=== PATIENT | female | born 1950 | race Caucasian/White ===

== ENCOUNTER 2023-04-30 11:55 | Inpatient (IN) | payer MEDICARE, OTHER, SELFPAY ==
[2023-04-21 08:47] VITALS: BMI 26.6
[2023-04-30] VITALS (16 sets, daily range): BP systolic 114–176; BP diastolic 65–107; PULSE 69–90; RESP 12–22; TEMP 36.1–36.7; O2SAT 90–100; BMI 25.6
--- NOTE | 2023-04-30 | DI.RAD.S_ITS ---
PROCEDURE: XR LUMBAR SPINE 2-3V INDICATIONS: L2-3 TLIF TECHNIQUE: 3 views of the lumbar spine were acquired. COMPARISON: None. FINDINGS: Intraoperative fluoroscopic views of pedicular screw and ibbiana fixation. The level cannot be determined with certainty given these images. IMPRESSION: Pedicular bibiana in screw fixation demonstrated. Dictated by: Isiah Watson M.D. on 05/01/2023 at 12:14 Approved by: Isiah Watson M.D. on 05/01/2023 at 12:15
[2023-04-30] MEDS: LACTATED RINGERS 1,000 ML 84 ML IV ×2 (12:53→14:56)
[2023-04-30] MEDS: CEFAZOLIN 2 GM/100 ML PREMIX 100 ML IV ×2 (13:20→21:50)
--- NOTE | 2023-04-30 13:44 | SUR.OPER ---
Prone on spine table, head in foam head support, padded chest and pelvic supports, gel pad at knees, lower legs supported by pillows; nipples, genitalia and toes free of pressure, arms secured on foam padded arm boards at <90 degrees abduction. Tape over blanket at thigh secured to table.
[2023-04-30] MEDS: BUPIVACAINE LIPOSOME 266 MG/20 ML VIAL INJ (14:03)
[2023-04-30] MEDS: BUPIVACAINE 0.25% (PF) 30 ML, EPINEPHrine 0.15 MG INJ (14:08)
--- NOTE | 2023-04-30 15:31 | PM.OP.1 ---
Operative Date/Time/Diagnoses Date of procedure: 04/30/23 Time of procedure: 13:00 Pre-op diagnosis: 1. L2-3 spondylolisthesis 2. L2-3 spinal stenosis Post-op diagnosis: same Procedure & Clinicians Procedure: 1. L2-3 Postero-lateral and posterior interbody fusion 2. L2-3 interbody cage placement. 3. L2-3 decompressive laminectomy with bilateral facetecomies 4. L2-3 Posterior non-segmental instrumentation 5. [place] of bone marrow from iliac crest 6. Utilization of microsurgical technique and operating microscope Same procedure as scheduled: Yes Indications: Patient has been having chronic back pain and worsening lumbar radiculopathy. Patient failed multiple conservative management with worsening pain weakness and numbness in her lower extremity. Patient has been having difficulty performing activity of daily living. After discussing risks benefits of treatment options, patient elected proceed with surgery. Surgeon: Xiomy Duong Railway Track Plant Operator: Genny Barlow Click Yes if Unassisted: No Anesthesia Type: General Operative Notes Closure Type: primary Specimen(s): none sent Prosthetic devices, grafts, tissues, transplants, or devices: Globus revolve screws, Rise cage Estimated Blood Loss (mL): 50 Blood products transfused: none Procedure in detail: Patient was seen in the preoperative area. Risks and benefits of the surgery was discussed with the patient. Informed consent was obtained from the patient and placed in the chart. Surgical site was marked. Patient was taken to the operative room. General anesthesia was administered. Prophylactic antibiotic was given to the patient less than 30 min before the incision was made. Patient was placed into a prone position on the Idris table. Patient's back was then prepped and draped in the sterile fashion. Time-out was performed at this time. Using AP and lateral C-arm imaging the interval between L2-3 was identified and marked on patient's back. A 2 inch incision 2 in from midline was made on the right side first. The fascia was incised in line with skin incision. Globus MARS retractors was placed inside the incision and docked onto the L2 lamina. Using microsurgical technique and operating microscope, a L2 laminectomy and L2-3 facetectomy was performed using a Kerrison rongeur. The laminectomy and facetectomy was performed in order to decompress patient's cauda equina as well as the nerve roots exiting at the L2-3 level. The disc space at L2-3 was identified. And a total diskectomy was performed at L2-3 level. The endplates were decorticated using a rasp and shaver. The total diskectomy and decortication was performed at L2-3 level in order to to accomplish a L2-3 fusion. The local bone from the laminectomy and facetectomy was saved for local bone grafting. After the total diskectomy and decortication was completed, Trifecta bone graft material was combined with local bone that was harvested earlier. At this time, a separate skin is incision was made over the iliac crest. A Jamshidi needle was inserted into the iliac crest through a separate skin incision. 5 cc of bone marrow aspiration was obtained through the separate skin incision using a Jamshidi needle from the iliac crest. The bone marrow aspiration was combined with local bone and the Trifecta bone grafting material. The bone grafting material was placed into the L2-3 interbody space along with a expandable cage. The cage was expanded to its maximum height using the torque limiting screwdriver. At this time a mirror image incision was made on the left side. The fascia was incised in line with the skin incision. Globus MARS retractor was inserted and docked onto the L2-3 posterolateral gutter. Using the power drill, posterior-lateral decortication was performed at L2-3 level until bleeding cortical bone was identified. The remaining bone grafting material was placed into the L2-3 posterior lateral gutter he order to accomplish posterolateral fusion at the L2-3 level. Using the double C-arm technique, pedicle screws were placed into the L2-3 pedicles bilaterally. This was done by placing the Jamshidi needle into the pedicles, then placing the guidewires over the Jamshidi needle, and finally placing the cannulated screws over the guidewires bilaterally. After the pedicle screws were placed, 2 titanium rods was locked into the heads of the pedicle screws using locking caps and torque limiting screwdriver. After all the hardware was placed, and confirmed with AP and lateral C-arm imaging, the wound was then irrigated with sterile normal saline and packed with Ray-Karthik gauze for 3 min to accomplish hemostasis. After the gauze was removed the deep fascia was closed with #1 Vicryl suture. The subcutaneous layer was closed with 2-0 Vicryl. The skin was closed with skin michael. Patient tolerated the procedure well. There were no complications. Complications: none Post-operative Condition: stable Disposition: PACU Plan for aftercare: admit to inpatient hospital
[2023-04-30] MEDS: hydrOXYzine 50 MG/ML INJ 25 MG IM (15:35)
[2023-04-30] MEDS: fentaNYL 100 MCG/2 ML INJ IV ×2 (15:35→15:45)
[2023-04-30] MEDS: OXYCODONE/ACETAMINOPHEN 5/325 TABLET 1 TAB PO (15:36)
[2023-04-30] MEDS: HYDROMORPHONE 2 MG INJ IV ×2 (15:56→16:01)
[2023-04-30] MEDS: LORazepam 2 MG/ML INJ 0.25 MG IV (16:10)
[2023-04-30] MEDS: LACTATED RINGERS 1,000 ML 125 ML IV (17:32)
[2023-04-30] MEDS: HYDROMORPHONE 0.5 MG INJ IV ×2 (19:58→23:45)
[2023-04-30] MEDS: OXYCODONE IR 5 MG TABLET PO (21:59)
[2023-04-30] MEDS: hydrOXYzine pamoate 25 MG CAPSULE PO (21:59)
[2023-05-01] VITALS: BP 138/65; PULSE 79; RESP 17; TEMP 36.1; O2SAT 96
[2023-05-01 00:03] VITALS: BP 136/65; PULSE 69; RESP 16; TEMP 36.6; O2SAT 96
--- NOTE | 2023-05-01 00:08 | PC.NURSE ---
Patient very drowsy but arouseable at shift change but is now more alert and conversant; alert and oriented. Breath sounds diminished but CTA. Initially on oxygen per simple mask at 2L/min per NC with sat of 93% but desats when on RA so currently on oxygen at 1L/min with sat of 96% when awake. HRR. Denies nausea. BT hypoactive and abdomen is soft. Voiding per bedpan and denies dysuria. Is assisted to reposition q2h although prefers to lie on left side. Dressing to back is CDI. Pain control issues and has had 2 doses of IV Dilaudid + vistaril and oxycodone; does fall asleep after receiving pain medication and does verbalize that the pain is better controlled currently; declines use of ice pack. CMS is intact. Wearing bilateral calf SCD's. Fall risk score is moderate and bed alarm is activated. Spouse at bedside.
[2023-05-01] MEDS: LACTATED RINGERS 1,000 ML 125 ML IV (01:55)
[2023-05-01] MEDS: OXYCODONE IR 5 MG TABLET PO ×3 (01:58→10:19)
[2023-05-01 04:00] VITALS: BP 104/52; PULSE 78; RESP 16; TEMP 36.2; O2SAT 94
[2023-05-01] MEDS: HYDROMORPHONE 0.5 MG INJ IV ×2 (04:35→08:13)
[2023-05-01] MEDS: CEFAZOLIN 2 GM/100 ML PREMIX 100 ML IV (04:35)
[2023-05-01] MEDS: hydrOXYzine pamoate 25 MG CAPSULE PO ×2 (05:27→16:57)
[2023-05-01] MEDS: DOCUSATE 100 MG CAPSULE PO (08:13)
[2023-05-01] MEDS: polyethylene glycoL 3350 17 GM POWD.PACK PO (08:13)
[2023-05-01 09:00] VITALS: BP 116/45; PULSE 73; RESP 17; TEMP 36.5; O2SAT 95
[2023-05-01] MEDS: ACETAMINOPHEN 325 MG TABLET 650 MG PO ×2 (10:19→16:57)
--- NOTE | 2023-05-01 10:55 | PT.IIE ---
Current Diagnoses Spondylolisthesis, lumbar region (04/30/23) Spinal stenosis, lumbar region with neurogenic claudication (04/30/23) Surgery Performed Operation Date: 04/30/23 13:45 Actual Procedures p L2-3 TLIF - Xiomy Duong MD Surgical History (Last Updated 04/21/23 @ 09:20 by Ebony Rasmussen, RN) H/O unilateral salpingectomy Hx of appendectomy Hx of bilateral cataract extraction Hx of eye surgery (~12/2022) Hx of hernia repair Hx of tubal ligation Medical History (Last Updated 04/21/23 @ 09:26 by Ebony Rasmussen, MANN) Cancer of eye (~2019) Depression Fecal incontinence HLD (hyperlipidemia) Hx of ectopic Hypotension Spinal stenosis, lumbar region, with neurogenic claudication Spondylolisthesis Thoracic outlet syndrome Physical Therapy Inpatient Evaluation/Re-Eval M1 PT/OT-IP Prior Functional Status Start: 05/01/23 13:05 Freq: NEEDED Status: Active Protocol: Document 05/01/23 10:55 AB (Rec: 05/01/23 13:16 AB [id number]) Medical Review Prior Functional Status Medical History Reviewed Yes Communication able to make needs known Mobility and Gait pt stated that she is modified independent with all mobilities and ambulation without AD Activities of Daily Living and IADL's spouse stated that he occasionally assists pt with dressing needs depending on pt 's back pain Social History Household Members spouse Living Arrangements House Number of Floors (Floors) One Floor Number of Stairs To Enter/Railing? no steps to enter Home Environment High Toilet,Walk in Shower Home Equipment Front Wheel Walker,Straight Cane,Hand Held Shower,Grab Bars Near Toilet,Grab Bars In Shower Additional Social History Comment pt has an adjustable bed M2 PT-IP Current Condition Start: 05/01/23 13:05 Freq: NEEDED Status: Active Protocol: Document 05/01/23 10:55 AB (Rec: 05/01/23 13:16 AB [email or web address]) Physical Therapy Current Condition Current Condition Evaluation Date 05/01/23 Treatment Diagnosis s/p L2-3 TLIF; difficulty in walking Onset Date 04/30/23 M3 PT-IP Subjective Start: 05/01/23 13:05 Freq: NEEDED Status: Active Protocol: Document 05/01/23 10:55 AB (Rec: 05/01/23 13:16 [id number]) Subjective Physical Therapy Visit Type Type Initial Evaluation Visit Start Time 10:55 Visit Stop Time 11:30 Total Visit Minutes 35 Number of [employer] NET OR TRAP Visits 0 Physical Therapy Visit Comments Patient Comments c/o increase back pain but agreeable to do PT Therapy Pain Assessment Pain When Pain Assessed At Rest Pain Present Pain Present Pain Reported Location Lower Back Intensity 6 Scale Used Numeric (0 - 10) Pain Behaviors Guarding Pain Management Techniques Apply Cold,Distraction, Modification of Treatment,Re- positioning,Timing of Activity with Medications M4 PT-IP Mobility and Gait Start: 05/01/23 13:05 Freq: NEEDED Status: Active Protocol: Document 05/01/23 10:55 AB (Rec: 05/01/23 13:16 [id number]) PT-Bed Mobility Assessment Rolling Type of Rolling Log Rolling Level of Assist Moderate Assistance,Maximal Assistance Supine to Sit Supine to Sit Moderate Assistance,Maximum Assistance PT-Transfer Assessment Sit to and From Stand Sit to and from Stand Moderate Assistance,1 Person Assistance,Use of Upper Extremities Equipment Transfer Assistive Device Gait Belt,Front Wheeled Walker Orthotic/Prosthetic Devices or Brace: No Transfers Transfer Destination Chair Transfer Technique ambulated Transfer Ability Level of Assist Moderate Assistance,1 Person Assistance,Use of Upper Extremities Comments Mobility Comments spouse in room with pt. educated pt and spouse regarding pt's back precautions and log roll bed mobility. pt completed log roll supine to sit mod to max A and max cues. c/o pain on L hand IV site limiting use of UE to push for bed mobility. completed sit to stand mod A and max cues. mod A for standing balance using FWW with slight posterior lean and cued to correct. pt ambulated in room using FWW ~ 30 ft mod A and cues. presents with unsteady gait with posterior trunk lean and decrease LE elevation. pt requesting to go back to bed but agreed to sit on chair for OT session. required mod A for controlled descent to chair and cues for techniques. positioned pt on the chair. Left pt with OT. ice pack provided. Gait Assessment Gait Gait Assistance Required: Moderate Assistance Distance (Feet) 30 Able to Maintain Weight Bearing Status Yes During Gait Assistive Devices Assistive Device Gait Belt,Front Wheeled Walker Orthotic/Prosthetic Devices or Brace: No Gait Deviations General Gait Pattern Decreased Stride Length, Decreased Feet Clearance Factors Limiting Gait Function Factors Limiting Gait Function Decreased Activity Tolerance, Decreased Strength,Limited Range of Motion,Pain,Poor Balance,Poor Safety Awareness PT-Balance Assessment Sitting Balance and Reactions Static Sitting Balance Ability Good Dynamic Sitting Balance Ability Fair Standing Balance and Reactions Static Standing Balance Ability Fair Dynamic Standing Balance Ability Poor Device Used FWW M5 PT-IP Objective Assessments Start: 05/01/23 13:05 Freq: NEEDED Status: Active Protocol: Document 05/01/23 10:55 AB (Rec: 05/01/23 13:16 AB [id number]) Orientation Orientation/Cognition Level of Alertness Alert Orientation Name,Place,Situation Language Function Ability Hard of Hearing Safety Awareness Decreased Safety Awareness Memory Description Short Term Impaired Gross Range of Motion Lower Extremity ROM Assessment Within Functional Limits Strength Lower Extremity Strength Hip 3+/5 Knee 4-/5 Sensation Assessment Sensation Gross Sensation WNL Muscle Tone Muscle Tone WNL Yes M6 PT-IP Treatment Start: 05/01/23 13:05 Freq: NEEDED Status: Active Protocol: Document 05/01/23 10:55 AB (Rec: 05/01/23 13:16 AB [email or web address]) Physical Therapy Treatment Education Education Provided Precautions,Weight Bearing Status,Post-Op Packet,Safety M7 PT-IP Assessment and Plan Start: 05/01/23 13:05 Freq: NEEDED Status: Active Protocol: Document 05/01/23 10:55 AB (Rec: 05/01/23 13:16 AB [email or web address]) PT Summary Assessment and Plan Potential Rehabilitation Potential Fair Status of Condition at Evaluation Evolving Summary Impairments Pain,ROM,Strength,Balance, Coordination,Sensation,Tone, Cognition,Bed Mobility, Transfers,Gait,Activity Tolerance Assessment Summary pt s/p L2-3 TLIF POD 1 and c/o increase back pain of 6/10. pt requires encouragement to participate. pt currently requiring mod to max A and max cues for bed mobility and mod A for transfers and ambulation using FWW. Caregiver training set up this afternoon at 130 pm. will continue to assess progress. Goals Bed Mobility Goal Standby Assistance Transfer Goal Standby Assistance,Front Wheeled Walker Gait Goal Standby Assistance,Front Wheel Walker Gait Distance 150 Days to Meet Goals 5 Frequency of Treatment Frequency Of Treatment Twice a Day Treatment Plan Physical Therapy Treatment Plan Bed Mobility Training,Transfer Training,Gait Training, Therapeutic Exercise,Balance Retraining,Post Op Education, Discharge Planning,Hot or Cold Pack,Neuromuscular Re-ed, Coordination Retraining,Manual Therapy Other Recommendations and Next Treatment caregiver training 05/01/23 @ [facility] 130pm Precautions Lumbar Precautions Log Roll,No Twisting,Limit Bending,Lifting Restriction of 10 lbs,Gait Belt above Incisional Area Recommendations To Nursing Amount of Assist Needed 1 Person Assist Discharge Recommendations PT Discharge Recommendations Home with 23/06 Assist Available,Home Health Transportation Needs at Discharge Private Vehicle
--- NOTE | 2023-05-01 11:23 | CM.DANOTE ---
Patient is a 72 yo female who was admitted on 04/30/23 for TLIF. Pt has [facility] and [employer] for insurance and her PCP is Cyndi Aviles at the [facility]. EMR was reviewed. Per Ortho, pt tolerated procedure but having some pain management issues and to work with PT/OT to determine d/c needs. PT/OT ordered and pending. SW met bedside with pt and spouse and explained role and pt confirms she lives at home in [place] with her spouse/DPOA and no other local family. Pt is mostly independent at baseline but confirms she has been limited due to chronic pain and has been needing more assist with meal prep and chores from her . Pt has not been using DME for ambulation but can only stand for short periods of time. Pt denies any hx of HH or SNF but feels likely she may need one or the other at d/c due to her pain control issues. Spouse states he is retired and home and able to assist and they have no stairs to enter and could get recommended DME like [facility] etc as needed. SW discussed HH services and frequency and SNF coverage and care. Spouse hopeful for d/c to home with HH but awaiting PT/OT eval to determine needs. Plan: SW to follow closely for PT/OT eval and recommendations to determine HH vs SNF at d/c and close discussion with pt and spouse. HERRERA Mendez Discharge Planning/Care Management Advanced directive, confirm from FAMILY Start: 04/30/23 17:06 Freq: Q24H Status: Active Protocol: Document 04/30/23 17:06 CM (Rec: 04/30/23 17:07 CM [id number]) Advance Directive, confirm on record Time 17:07 Person contacted Pt's Spouse Copy received No CM Discharge Assessment Start: 05/01/23 11:18 Freq: Status: Active Protocol: Document 05/01/23 11:18 BF (Rec: 05/01/23 11:23 BF [id number]) Discharge Planning Assessment Assigned Formation Fracturing Operator HERRERA Zepeda DPOA/Assigned Designee Name spouse Vitor Contact Information [phone] Advance Directives? Yes Advance Directives on File No History Provided By Patient,Significant Other, Medical Record Has Patient been admitted in last 30 No days? Prior Living Arrangements House Household Members spouse Type of transporation used prior to Relies on Others admit Independent with ADL's Yes: somewhat, limited due to chronic pain Is patient alert and oriented? Yes Needs Assistance With Meal Prep,Home Chores / Shopping Caregiver for Another No Patient/Family Preference [facility] Facility,Home with Home Health Comment HH vs SNF pending progress with PT/OT Barriers to Discharge No Discharge Plan Home with Home Health Transportation Arrangement Spouse bedside and will transport if safe for home Additional Comment Pending PT/OT eval and recommendations Whiteboard Updated in Patient Room with Yes name and ext. # of Formation Fracturing Operator Review Status In Process Please Provide Date Initial DC 05/01/23 Assessment Was Performed Next Review Type Continued Stay Review Pre-Anesthesia Assessment Start: 04/21/23 08:47 Freq: Status: Complete Protocol: Document 04/21/23 08:47 CAB (Rec: 04/21/23 09:40 CAB [id number]) Pre-Anesthesia Assessment Preferred Name Daria Patient Information Reviewed Via Phone Assessment Assessment Completed With Patient Diagnostic Results BMP/CMP,CBC,EKG Comment Outside labs/EKG scanned Primary Care Provider Cyndi Ladd Seen Specialist in Last 12 Months Yes Specialist Seen Oncologist,Opthamologist/ Field Marketing Associate,Orthopedist Primary Language Maltese Recruiting Internship Required No Height 157.48 cm Weight 66.224 kg Body Mass Index (BMI) 26.6 Hearing Ability Normal Visual Assist Glasses Dentition Type Teeth, Natural Present Barriers to Learning None Hx Anesthesia Reactions No Hx Family Anesthesia Reaction No Hx Malignant Hyperthermia No Hx Blood Transfusions No Anesthesia Review Requested No Mortgage Loan Officer No alcohol intake current alcohol intake frequency holidays/special occasions only Smoking Status Former smoker how long ago did patient quit smoking Quit in her 20's Substance Use Type does not use Pain Present Pain Reported Musculoskeletal Symptoms Abnormal Gait,Back Pain, Difficulty Walking,Muscle Spasms,Numbness,Radiating Pain into Limb,Tingling History of Falling (Recent or History of Yes ) Patient is completely paralyzed or No completely immobile Mental Status Oriented to own ability Is patient on oxygen? No Does patient have WILSON/SOB No Hx Sleep Apnea No Currently Taking a Beta Angella No Hx Chest Pain No Hx SOB No Hx Syncope or Dizziness No Anti-Coagulant Therapy No Has a Distribution Transformer Assembler No Cardiac Testing No Hx Pacemaker/ICD No Pacemaker Rep Required? No Diet Type At Home Regular Dysphagia No Gastrointestinal Symptoms Fecal Incontinence Comment Pt states controlled with probiotics Chronic UTI No Urinary Catheter Present No Hx Urinary Self Catheterization No Diabetes No HgbA1C 5.9 Date 03/25/23 Patient No Lactating No Presence of External or Internal Medical Yes: Bilat eye IOLs Devices Have you had any close contact with No someone diagnosed with COVID-19? Received a COVID vaccine? No Marital Status Lives With spouse Current Living Arrangements House Number of Floors (Floors) Two Floors Support System Spouse Does the Patient Have Assistance After Yes Surgery Patient Discharge Plan Description Return Home Comment Pt advised overnight length of stay per surgeon Feels Safe in Current Environment Yes Been Physically Hurt or Threatened By a No Person in Current Environment Do you have thoughts of harming yourself None or others? Are you currently considering suicide? No Do you have a plan to hurt yourself or No Plan others? Do You Have Any Spiritual Beliefs That No May Affect Your HC Choices? Do You Have Any Cultural Practices That No May Affect Your HC Choices? Comment Yazidism Who Can We Speak to About Patient's Care Family, friends Identifying Code for Release of Patient Declines to issue Information Health Care Proxy/Next of Kin Vitor () Health Care Proxy Emergency Contact Name Vitor () Emergency Contact Advance Directives? Yes Advance Directives on File No Requested Patient Bring Advanced Yes Directives DOS Power of Substation Inspector No PAC Instructions Durable medical equipment, Medications to take/avoid, Nasal antibiotic,No ETOH/ petroleum product on skin DOS, NPO
--- NOTE | 2023-05-01 11:58 | OT.IP.EVAL ---
Current Diagnoses Spondylolisthesis, lumbar region (04/30/23) Spinal stenosis, lumbar region with neurogenic claudication (04/30/23) Surgery Performed Operation Date: 04/30/23 13:45 Actual Procedures p L2-3 TLIF - Xiomy Duong MD Past Medical History (Last Updated 04/21/23 @ 09:26 by Ebony Rasmussen, RN) Cancer of eye (~2019) Depression Fecal incontinence HLD (hyperlipidemia) Hx of ectopic Hypotension Spinal stenosis, lumbar region, with neurogenic claudication Spondylolisthesis Thoracic outlet syndrome Surgical History (Last Updated 04/21/23 @ 09:20 by Ebony Rasmussen, MANN) H/O unilateral salpingectomy Hx of appendectomy Hx of bilateral cataract extraction Hx of eye surgery (~12/2022) Hx of hernia repair Hx of tubal ligation Occupational Therapy Inpatient Evaluation/Re-Eval M1 PT/OT-IP Prior Functional Status Start: 05/01/23 13:05 Freq: NEEDED Status: Active Protocol: Document 05/01/23 10:55 AB (Rec: 05/01/23 13:16 AB [id number]) Medical Review Prior Functional Status Medical History Reviewed Yes Communication able to make needs known Mobility and Gait pt stated that she is modified independent with all mobilities and ambulation without AD Activities of Daily Living and IADL's spouse stated that he occasionally assists pt with dressing needs depending on pt 's back pain Social History Household Members spouse Living Arrangements House Number of Floors (Floors) One Floor Number of Stairs To Enter/Railing? no steps to enter Home Environment High Toilet,Walk in Shower Home Equipment Front Wheel Walker,Straight Cane,Hand Held Shower,Grab Bars Near Toilet,Grab Bars In Shower Additional Social History Comment pt has an adjustable bed M1 PT/OT-IP Prior Functional Status Start: 05/01/23 13:30 Freq: NEEDED Status: Active Protocol: Document 05/01/23 11:00 [facility] (Rec: 05/01/23 13:57 [facility] [id number]) Medical Review Prior Functional Status Medical History Reviewed Yes Communication able to make needs known Mobility and Gait pt stated that she is modified independent with all mobilities and ambulation without AD Activities of Daily Living and IADL's spouse stated that he occasionally assists pt with dressing needs depending on pt 's back pain Social History Household Members spouse Living Arrangements House Number of Floors (Floors) One Floor Number of Stairs To Enter/Railing? no steps to enter Home Environment High Toilet,Walk in Shower Home Equipment Front Wheel Walker,Straight Cane,Hand Held Shower,Grab Bars Near Toilet,Grab Bars In Shower Additional Social History Comment pt has an adjustable bed M2 OT-IP Current Condition Start: 05/01/23 13:30 Freq: Status: Active Protocol: Document 05/01/23 11:00 [facility] (Rec: 05/01/23 13:57 [facility] [id number]) Occupational Therapy Current Condition Current Condition Evaluation Date 05/01/23 Treatment Diagnosis S/p L2-3 TLIF Diagnosis Onset Date 04/30/23 Post Operative Precautions Lumbar Precautions Log Roll,No Twisting,Limit Bending,Lifting Restriction of 10 lbs,Gait Belt above Incisional Area M3 OT- IP Subjective and Pain Start: 05/01/23 13:30 Freq: Status: Active Protocol: Document 05/01/23 11:00 [facility] (Rec: 05/01/23 13:57 [facility] [id number]) OT- Subjective Occupational Therapy Visit Type Type Initial Evaluation Visit Start Time 11:00 Visit Stop Time 11:58 Total Visit Minutes 58 Occupational Therapy Visit Comments Patient Comments Pt agreed to get up and her in the room. Patient/Caregiver Goals To go home. OT Pain Assessment Pain When Pain Assessed During Mobility Pain Present Pain Present Pain Reported Location Lower Back Intensity 6 M4 OT- IP ADL's Start: 05/01/23 13:30 Freq: Status: Active Protocol: Document 05/01/23 11:00 [facility] (Rec: 05/01/23 13:57 [facility] [id number]) OT [id number] Comments OT Self-Feeding Comments Not at meal time. OT ADL-Grooming Comments OT Grooming Comments Pt did earlier. OT ADL-Oral Care Comments Oral Care Comments Educated best to spit into a cup to best follow her back precautions. OT ADL-Dressing Comments OT Dressing Comments Pt able to practice use of sock aid and checker stocker to assist with her needs. Pt's states to assist her at home. OT ADL-Toileting Comments OT Toileting Comments Educated will be easier to stand to wipe for hygiene needs and use of wet wipes. In addition to possible wear a pad/brief so not having to hurry to the bathroom at night . OT ADL-Bathing Comments OT Bathing Comments Pt considering getting shower chair as the built in seat in at the end of the shower wall. M5 OT- IP IADL's Start: 05/01/23 13:30 Freq: Status: Active Protocol: Document 05/01/23 11:00 [facility] (Rec: 05/01/23 13:57 [facility] [id number]) OT-Instrumental Activities of Daily Living Deficits IADL Deficits Identified Deficits Home Safety Awareness Awareness of Need for Assistance at Home Good Awareness Home Safety Comments pt has a supportive that will assist with pt needs . M6 OT- IP Functional Cognition Start: 05/01/23 13:30 Freq: Status: Active Protocol: Document 05/01/23 11:00 [facility] (Rec: 05/01/23 13:57 [facility] [id number]) Cognitive Factors Limiting Selfcare Function Cognitive Ability Level of Alertness Alert Cognitive Comments Cognitive Assessment Comments Pt is a bit groggy and needing increased time to follow directions for log rolling and bed mobility needs. Pt will benefit from continued incorporation of back precautions for ADl and mobility needs. OT- Vision and Hearing OT- Vision Assessment Vision Assessment Comments Pt's left eye 10-15% vision and right eye just able to see far and needing glasses for close vision. M7 OT- IP Mobility and Balance Start: 05/01/23 13:30 Freq: Status: Active Protocol: Document 05/01/23 11:00 [facility] (Rec: 05/01/23 13:57 [facility] [id number]) OT- Bed Mobility Assessment Supine to Sit Supine to Sit Assist Moderate Assistance,Maximum Assistance Sit to Supine Sit to Supine Assist Moderate Assistance OT-Transfer Assessment Sit to and From Stand Sit to and from Stand Moderate Assistance Transfers Transfer Ability Moderate Assistance Technique Transfer Destination Bed,Chair Transfer Technique Stand Step Pivot Devices Transfer Assistive Devices Gait Belt,Front Wheeled Walker Comments Mobility Comments Pt needing assist for her trunk and legs out of the bed and just for her legs back into bed. Coming to stand use of FWW and MODA to stand and assist to help lower to the recliner. Pt tends to lean slightly posteriorly when on her feet with the FWW and needing to help guide the FWW ahead of her a little more. Able to educate her to tamica/doff the gait belt and how to assist for transfer at this time. Pt's to continue caregiver training with her this PM. Pt has a high bed at home, but states able to take off the egg crate foam if needed. OT- Balance Assessment Sitting Balance and Reactions Static Sitting Balance Ability Good Dynamic Sitting Balance Ability Fair Standing Balance and Reactions Static Standing Balance Ability Fair Dynamic Standing Balance Ability Poor Comments Other Balance Tests/Deviations/Treatment Pt tends to posterior lean, : but after getting up a seconds time doing better when walking with the FWW. M9 OT- IP Assessment and Plan Start: 05/01/23 13:30 Freq: Status: Active Protocol: Document 05/01/23 11:00 [facility] (Rec: 05/01/23 13:57 [facility] [id number]) OT Summary Assessment and Plan Potential Rehabilitation Potential Good Analytic Complexity at Evaluation Low Summary OT Impairments Pain,Strength,Balance, Functional Mobility,Grooming, Dressing,Toileting,Bathing, Toilet Transfers,Shower Transfers,Activity Tolerance Progress Towards Goals Progressing Toward Goals,Slow Progress due to Pain Assessment Summary Pt low complexity and main barrier is pain. Pt's has initiated caregiver training and OT has suggested pt get a shower chair and LB dressing equipment. Pt to go home when medically stable and after caregiver training. Goals Grooming Goal Independent Dressing Goal Independent Toileting Goal Independent Bathing Goal Standby Assistance Toilet Transfer Goal Independent Shower Transfer Goal Standby Assistance Days to Meet Goals 10 Frequency of Treatment Frequency Of Treatment Once a Day Treatment Plan OT Treatment Plan ADL Training,Functional Mobility,Patient/Family Education,Discharge Planning Other Treatment Recommendations and Next Caregiver training for ADl Treatment Focus needs. Discharge Recommendations OT Discharge Recommendations Home with Assistance Home Equipment Needs shower chair, LB dressing equipment Transportation Needs at Discharge Private Vehicle
[2023-05-01] MEDS: OXYCODONE 5 MG/5 ML ORAL SOLUTION 10 MG PO (13:03)
[2023-05-01] MEDS: CYCLOBENZAPRINE 10 MG TABLET PO (13:04)
--- NOTE | 2023-05-01 13:30 | PT.IPTN ---
Current Diagnoses Spondylolisthesis, lumbar region (04/30/23) Spinal stenosis, lumbar region with neurogenic claudication (04/30/23) Surgery Performed Operation Date: 04/30/23 13:45 Actual Procedures p L2-3 TLIF - Xiomy Duong MD Physical Therapy Treatment Note M2 PT-IP Current Condition Start: 05/01/23 13:05 Freq: NEEDED Status: Active Protocol: Document 05/01/23 10:55 AB (Rec: 05/01/23 13:16 AB [id number]) Physical Therapy Current Condition Current Condition Evaluation Date 05/01/23 Treatment Diagnosis s/p L2-3 TLIF; difficulty in walking Onset Date 04/30/23 M3 PT-IP Subjective Start: 05/01/23 13:05 Freq: NEEDED Status: Active Protocol: Document 05/01/23 14:07 TS (Rec: 05/01/23 14:24 TS [id number]) Subjective Physical Therapy Visit Type Type Treatment Note Visit Start Time 13:30 Visit Stop Time 14:06 Total Visit Minutes 36 Notes Caregiver training. Number of LIABILITY CLAIMS ADJUSTER Visits 1 Physical Therapy Visit Comments Patient Comments Pt continues to c/o back pain, agreeable to PT. Therapy Pain Assessment Pain When Pain Assessed At Rest Pain Present Pain Present Pain Reported Location Lower Back Intensity 6 Scale Used Numeric (0 - 10) Pain Management Techniques Apply Cold,Distraction, Modification of Treatment,Re- positioning,Timing of Activity with Medications M4 PT-IP Mobility and Gait Start: 05/01/23 13:05 Freq: NEEDED Status: Active Protocol: Document 05/01/23 14:07 TS (Rec: 05/01/23 14:24 TS [id number]) PT-Bed Mobility Assessment Rolling Type of Rolling Log Rolling Level of Assist Minimal Assistance Supine to Sit Supine to Sit Minimal Assistance Sit to Supine Sit to Supine Moderate Assistance Scooting Scooting to Edge of Bed Standby Assistance Scooting Up and Down in Bed Standby Assistance PT-Transfer Assessment Sit to and From Stand Sit to and from Stand Minimal Assistance Equipment Transfer Assistive Device Gait Belt,Front Wheeled Walker Orthotic/Prosthetic Devices or Brace: No Comments Mobility Comments Pt found resting in bed, agreeable to PT. She recalled 2/3 spinal precautions prior to session(twisting) Logroll Daysi, requires cues for sequencing and handrail assist . Supine to sit Daysi for uprighting trunk, provided cues for BUE support and LE sequencing. Sit to stand Daysi from high bed, slow to stand with FWW, required cues for handplacement. She ambulated in room CGA ~40' with slow/ cautious step to gait, no buckling or LOB but reports some shaking. Sit to supine ModA for LEs into bed, required cues for decreased twisting and UE support. Pt was left in bed with call light nearby, RN notified. Gait Assessment Gait Gait Assistance Required: Contact Guard Assist Distance (Feet) 40 Able to Maintain Weight Bearing Status Yes During Gait Assistive Devices Assistive Device Gait Belt,Front Wheeled Walker Gait Deviations General Gait Pattern Decreased Stride Length, Decreased Feet Clearance Factors Limiting Gait Function Factors Limiting Gait Function Decreased Activity Tolerance, Decreased Strength,Limited Range of Motion,Pain,Poor Balance,Poor Safety Awareness Comments Gait Comments Seee mobility comments. PT-Balance Assessment Sitting Balance and Reactions Static Sitting Balance Ability Good Dynamic Sitting Balance Ability Fair Standing Balance and Reactions Static Standing Balance Ability Good Dynamic Standing Balance Ability Fair Device Used FWW Comments Other Balance Tests/Deviations/Treatment Pt sat EOB SBA with BUE : support. Static standing was good w/FWW and no buckling or LOB. M5 PT-IP Objective Assessments Start: 05/01/23 13:05 Freq: NEEDED Status: Active Protocol: Document 05/01/23 10:55 AB (Rec: 05/01/23 13:16 AB [id number]) Orientation Orientation/Cognition Level of Alertness Alert Orientation Name,Place,Situation Language Function Ability Hard of Hearing Safety Awareness Decreased Safety Awareness Memory Description Short Term Impaired Gross Range of Motion Lower Extremity ROM Assessment Within Functional Limits Strength Lower Extremity Strength Hip 3+/5 Knee 4-/5 Sensation Assessment Sensation Gross Sensation WNL Muscle Tone Muscle Tone WNL Yes M6 PT-IP Treatment Start: 05/01/23 13:05 Freq: NEEDED Status: Active Protocol: Document 05/01/23 14:07 TS (Rec: 05/01/23 14:24 TS [id number]) Physical Therapy Treatment Education Education Provided Precautions,Weight Bearing Status,Post-Op Packet,Safety M7 PT-IP Assessment and Plan Start: 05/01/23 13:05 Freq: NEEDED Status: Active Protocol: Document 05/01/23 14:07 TS (Rec: 05/01/23 14:24 TS [id number]) PT Summary Assessment and Plan Potential Rehabilitation Potential Good Summary Impairments Pain,ROM,Strength,Balance, Coordination,Sensation,Tone, Cognition,Bed Mobility, Transfers,Gait,Activity Tolerance Assessment Summary Pt is progressing well with her mobility this afternoon. She was Daysi/ModA for bed mobility and Daysi for sit to stands. She progressed her gait to ~40' in room CGA from spouse, no signs of buckling or LOB, pt did report some shakiness. She does require Mod-Max cueing for all mobility and for maintaining spinal precautions, pt continues to twist. PT is recommending home with 24/7 assist from spouse at this time. Pt would benefit from continued skilled therapy for improved safety awareness and progression of mobility, pain remains a limiting factor in progressing her mobiltiy. Goals Bed Mobility Goal Standby Assistance Transfer Goal Standby Assistance,Front Wheeled Walker Gait Goal Standby Assistance,Front Wheel Walker Gait Distance 150 Days to Meet Goals 5 Frequency of Treatment Frequency Of Treatment Twice a Day Treatment Plan Physical Therapy Treatment Plan Bed Mobility Training,Transfer Training,Gait Training, Therapeutic Exercise,Balance Retraining,Post Op Education, Discharge Planning,Hot or Cold Pack,Neuromuscular Re-ed, Coordination Retraining,Manual Therapy Precautions Lumbar Precautions Log Roll,No Twisting,Limit Bending,Lifting Restriction of 10 lbs,Gait Belt above Incisional Area Recommendations To Nursing Amount of Assist Needed 1 Person Assist Discharge Recommendations PT Discharge Recommendations Home with 24/7 Assist Available,Home Health
[2023-05-01 15:00] VITALS: BP 93/47; PULSE 71; RESP 17; TEMP 36.2; O2SAT 92
[2023-05-01] MEDS: diphenhydrAMINE 25 MG TABLET PO (15:42)
[2023-05-01] MEDS: ATORVASTATIN 20 MG TABLET PO (16:05)
[2023-05-01] MEDS: OXYCODONE IR 10 MG TABLET PO (16:57)
--- NOTE | 2023-05-01 17:29 | P.PN_ITS ---
Subjective Subjective Date Patient Seen: 05/01/23 Time Patient Seen: 15:00 Interval history: Patient was seen twice today with at bedside, once while up with OT and again resting in bed comfortably with no complaint of pain. She states that when she is resting on her side not moving she has no pain. Denies numbness and tingling to bilateral lower extremities. She is apprehensive about going home today as pain has not been well controlled at times. Exam Vital Signs (past 8 hours): Oxygen Delivery Method Simple Mask Oxygen Flow Rate 0 Narrative Exam Narrative: Pleasant 72-year-old female. Awake, alert, and oriented. Intraoperative dressing clean, dry, and intact. Face slightly puffy, especially around eyes with slight erythema, patient seen itching face multiple times. Strength and sensation intact to bilateral lower extremities. Bilateral calves soft, compressible, nontender with no palpable cords or masses. [facility] Medical History Cancer of eye (~2019) Depression Fecal incontinence HLD (hyperlipidemia) Hx of ectopic Hypotension Spinal stenosis, lumbar region, with neurogenic claudication Spondylolisthesis Thoracic outlet syndrome Surgical History H/O unilateral salpingectomy Hx of appendectomy Hx of bilateral cataract extraction Hx of eye surgery (~12/2022) Hx of hernia repair Hx of tubal ligation Social History household members: spouse Smoking Status: Former smoker alcohol intake: current Assessment & Plan Post-op Postoperative Procedures: Procedures Operation Date: 04/30/23 13:45 Actual Procedure Side Surgeon p L2-3 TLIF Xiomy Duong MD Postoperative day: 1 Postoperative status: doing well and marginal pain control Postoperative status narrative: Patient is progressing as expected after L2-3 TLIF. She was having inconsistent pain control overnight and this morning, but has had better control with addition of 10mg tablet oxycodone for severe pain today. Postoperative plan: routine post-op care Postoperative plan narrative: Plan for continued physical therapy tomorrow. Continue pain control regimen. Assess patient's face for signs of possible reaction to medication - treated with one time dose of Benadryl today. Likely discharge tomorrow once pain is better controlled and patient works with physical therapy one more time. Quality VTE Deep Vein Thrombosis/Pulmonary Embolism Present on Admission: No
[2023-05-01] MEDS: LACTATED RINGERS 1,000 ML 150 ML IV (19:00)
[2023-05-01 19:30] VITALS: BP 109/44; PULSE 64; RESP 18; TEMP 36.2; O2SAT 99
[2023-05-02 01:05] VITALS: BP 144/57; PULSE 74; RESP 18; TEMP 36.3; O2SAT 99
[2023-05-02] MEDS: LACTATED RINGERS 1,000 ML 150 ML IV (01:34)
[2023-05-02 03:00] VITALS: BP 132/60; PULSE 70; RESP 18; TEMP 36.4; O2SAT 96
[2023-05-02] MEDS: OXYCODONE IR 5 MG TABLET PO ×2 (03:03→06:00)
[2023-05-02] MEDS: OXYCODONE IR 10 MG TABLET PO ×2 (03:49→08:20)
[2023-05-02] MEDS: ACETAMINOPHEN 325 MG TABLET 650 MG PO (06:00)
--- NOTE | 2023-05-02 08:14 | P.DS_ITS ---
History of Present Illness History of Present Illness Date Patient Seen: 05/02/23 Time Patient Seen: 08:14 Chief complaint: INPT Narrative: Operative Date/Time/Diagnoses Date of procedure: 04/30/23 Time of procedure: 13:00 Pre-op diagnosis: 1. L2-3 spondylolisthesis 2. L2-3 spinal stenosis Post-op diagnosis: same Procedure & Clinicians Procedure: 1. L2-3 Postero-lateral and posterior interbody fusion 2. L2-3 interbody cage placement. 3. L2-3 decompressive laminectomy with bilateral facetecomies 4. L2-3 Posterior non-segmental instrumentation 5. [place] of bone marrow from iliac crest 6. Utilization of microsurgical technique and operating microscope Same procedure as scheduled: Yes Indications: Patient has been having chronic back pain and worsening lumbar radiculopathy. Patient failed multiple conservative management with worsening pain weakness and numbness in her lower extremity.? Patient has been having difficulty performing activity of daily living.? After discussing risks benefits of treatment options, patient elected proceed with surgery. Surgeon: Xiomy Duong Centerless Grinder Operator: Genny Barlow Click Yes if Unassisted: No Anesthesia Type: General Operative Notes Closure Type: primary Specimen(s): none sent Prosthetic devices, grafts, tissues, transplants, or devices: Globus revolve screws, Rise cage Estimated Blood Loss (mL): 50 Blood products transfused: none Discharge Providers Provider Date of admission: 04/30/23 11:55 Discharge Date: 05/02/23 Consults: 04/30/23 16:51 Consult to Occupational Therapy Evaluate & Treat Comment: Physician Instructions: Evaluate and treat Consult to Physical Therapy Evaluate & Treat Comment: Physician Instructions: Evaluate and Treat Discharge provider: Genny Barlow PA-C Summary Hospital Course Discharge Diagnosis: L2-3 spondylolisthesis and spinal stenosis, s/p lumbar fusion Hospital Course: Ms Crump's hospital course was remarkable for poor pain control and slow progress w/ PT. On the morning of POD# 2, she was feeling better and wanted to go home. She was eating and voiding without difficulty and her pain was adequately controlled with oral medication. She was evaluated by PT throughout her stay and felt to be safe for discharge home with home health. Exam Vital Signs (past 8 hours): - 05/02/23 01:05 05/02/23 03:00 Temperature 97.4 F L 97.5 F L Pulse Rate 74 70 Respiratory Rate 18 18 Blood Pressure 144/57 H 132/60 Pulse Oximetry 99 96 Oxygen Flow Rate 0 0 Oxygen Delivery Method Simple Mask Oxygen Flow Rate 0 Narrative Exam Narrative: 5/5 strength in hip flexors, quadriceps, hamstrings, DF, PF, EHL bilaterally. Sensation to light touch intact throughout BLE. Calves soft, compressible, nontender and without palpable cords or masses. Dressing placed intraoperatively CDI. PFSH Medical History Cancer of eye (~2019) Depression Fecal incontinence HLD (hyperlipidemia) Hx of ectopic Hypotension Spinal stenosis, lumbar region, with neurogenic claudication Spondylolisthesis Thoracic outlet syndrome Surgical History H/O unilateral salpingectomy Hx of appendectomy Hx of bilateral cataract extraction Hx of eye surgery (~12/2022) Hx of hernia repair Hx of tubal ligation Social History household members: spouse Smoking Status: Former smoker alcohol intake: current Discharge Assessment & Plan Assessment and Plan Assessment: L2-3 spondylolisthesis and spinal stenosis, s/p lumbar fusion Plan of Treatment: Discharge home w/ HH after PT today if PT agrees. Multimodal pain control, f/u in office in 2 weeks as scheduled. Discharge Plan Discharge Plan Patient Disposition: Home Health Service Discharge orders & Medications Prescriptions: New acetaminophen 325 mg Tablet 650 mg PO Q6H PRN (Reason: Fever/Mild Pain (1-3)) Qty: 120 0RF cyclobenzaprine 10 mg Tablet 10 mg PO TID PRN (Reason: Muscle Spasm) Qty: 40 0RF oxycodone 5 mg Tablet 5 mg PO Q4-6H PRN (Reason: Pain, Moderate (4-6)) Qty: 40 0RF Continued cyclobenzaprine 10 mg Tablet 10 mg PO TID PRN (Reason: Muscle Spasm) rosuvastatin 10 mg Tablet 10 mg PO QPM Advil PM 200-38 mg Tablet 1 cap PO BEDTIME PRN (Reason: Sleep, pain) Discontinued hydrocodone-acetaminophen 5-325 mg Tablet 1 tab PO Q12H PRN (Reason: Pain) Follow up/Referrals: Xiomy Duong MD [Physician] - As previously scheduled (Follow up with Rodolfo Valencia PA-C, on 05/14/2023 @ 1:30 pm at [facility] office in [place].) Diet/Activity/Treatments Diet: Diet as Tolerated Activity: No deep bending or twisting at the waist. No lifting more than 10 pounds. Cold/Heat Therapy: Heating pad to low back as needed for pain. Skin/Wound/Dressing Care Report to your healthcare provider any signs of infection, such as:: chills, fever, night sweats, unusual drainage and unusual redness Dressing: May shower; keep dressing as dry as possible. If dressing becomes wet or dirty, may remove and replace with clean, dry gauze. No bathing or otherwise soaking incisions. Do not apply any creams, lotions, or ointments to incisions. Visit Report/Discharge Packet Instructions: DI for Transforaminal Lumbar Interbody Fusion, DI for Prescription Opioid Use Stand Alone Forms: Patient Portal/API, Surgery Discharge, Stroke Signs & Symptoms Quality VTE Deep Vein Thrombosis/Pulmonary Embolism Present on Admission: No
[2023-05-02] MEDS: DOCUSATE 100 MG CAPSULE PO (08:18)
[2023-05-02] MEDS: hydrOXYzine pamoate 25 MG CAPSULE PO (08:18)
[2023-05-02 08:38] VITALS: BP 110/56; PULSE 75; RESP 18; TEMP 36.4; O2SAT 96
--- NOTE | 2023-05-02 09:38 | PT.IPTN ---
Current Diagnoses Spondylolisthesis, lumbar region (04/30/23) Spinal stenosis, lumbar region with neurogenic claudication (04/30/23) Surgery Performed Operation Date: 04/30/23 13:45 Actual Procedures p L2-3 TLIF - Xiomy Duong MD Physical Therapy Treatment Note M2 PT-IP Current Condition Start: 05/01/23 13:05 Freq: NEEDED Status: Active Protocol: Document 05/01/23 10:55 AB (Rec: 05/01/23 13:16 AB [id number]) Physical Therapy Current Condition Current Condition Evaluation Date 05/01/23 Treatment Diagnosis s/p L2-3 TLIF; difficulty in walking Onset Date 04/30/23 M3 PT-IP Subjective Start: 05/01/23 13:05 Freq: NEEDED Status: Active Protocol: Document 05/02/23 09:28 ES (Rec: 05/02/23 09:38 ES [id number]) Subjective Physical Therapy Visit Type Type Treatment Note Visit Start Time 08:50 Visit Stop Time 09:28 Total Visit Minutes 38 Number of PHOTO OPTICS TECHNICIAN Visits 0 Physical Therapy Visit Comments Patient Comments Patient reported she had a rough night but feeling a lot better today. will be here around 10 AM and patient is feeling good enough to go home. Therapy Pain Assessment Pain When Pain Assessed At Rest Pain Present Pain Present Pain Reported Location Lower Back Intensity 2 Scale Used Numeric (0 - 10) M4 PT-IP Mobility and Gait Start: 05/01/23 13:05 Freq: NEEDED Status: Active Protocol: Document 05/02/23 09:28 ES (Rec: 05/02/23 09:38 ES [id number]) PT-Transfer Assessment Sit to and From Stand Sit to and from Stand Independent Equipment Transfer Assistive Device Front Wheeled Walker Orthotic/Prosthetic Devices or Brace: No Comments Mobility Comments Patient declined to do bed mobility, stating she didn't need help this morning getting out of bed and has no concerns about doing it at home. Patient performed sit to /from stand maintaining straight spine without cues using scooting technique. Gait Assessment Gait Gait Assistance Required: Independent Distance (Feet) 150 Assistive Devices Assistive Device Gait Belt,Front Wheeled Walker Gait Deviations General Gait Pattern Decreased Stride Length, Decreased Feet Clearance Factors Limiting Gait Function Factors Limiting Gait Function Decreased Strength Comments Gait Comments Patient able to ambulate safely with FWW, with ability to self correct twisting and using BUE's when moving. She had one episode of dizziness when turning around without LOB that resolved quickly. Stair Climbing Assessment Comments Stair Climbing Comments No stairs at home (will be staying on entry specialist) PT-Balance Assessment Sitting Balance and Reactions Static Sitting Balance Ability Good Dynamic Sitting Balance Ability Good Standing Balance and Reactions Static Standing Balance Ability Good Dynamic Standing Balance Ability Good Device Used FWW Comments Other Balance Tests/Deviations/Treatment Able to stand at sink to brush : teeth without LOB maintaining neutral spine without UE support. M5 PT-IP Objective Assessments Start: 05/01/23 13:05 Freq: NEEDED Status: Active Protocol: Document 05/01/23 10:55 AB (Rec: 05/01/23 13:16 AB [id number]) Orientation Orientation/Cognition Level of Alertness Alert Orientation Name,Place,Situation Language Function Ability Hard of Hearing Safety Awareness Decreased Safety Awareness Memory Description Short Term Impaired Gross Range of Motion Lower Extremity ROM Assessment Within Functional Limits Strength Lower Extremity Strength Hip 3+/5 Knee 4-/5 Sensation Assessment Sensation Gross Sensation WNL Muscle Tone Muscle Tone WNL Yes M6 PT-IP Treatment Start: 05/01/23 13:05 Freq: NEEDED Status: Active Protocol: Document 05/02/23 09:28 ES (Rec: 05/02/23 09:38 [id number]) Physical Therapy Treatment Education Education Provided Precautions,Post-Op Packet, Safety Other Treatments Other Treatment Performed Reviewed post op packet with precaution list and log roll handout. Patient repeated precautions back to PT afterward for improved recall. Instructed patient to post the precautions list by her chair to remind her at home. M7 PT-IP Assessment and Plan Start: 05/01/23 13:05 Freq: NEEDED Status: Active Protocol: Document 05/02/23 09:28 ES (Rec: 05/02/23 09:38 ES [id number]) PT Summary Assessment and Plan Summary Assessment Summary Patient continues to progress with therapy, demonstrating improved recall and follow through with precautions, and now able to perform transfers and gait indep with FWW without cues for posture/ precautions. Her pain was well controlled during treatment. She has met all goals for d/c home. She may benefit from PT for education on safety and precautions in the home. Goals Bed Mobility Goal Standby Assistance Transfer Goal Standby Assistance,Front Wheeled Walker Gait Goal Standby Assistance,Front Wheel Walker Gait Distance 150 Days to Meet Goals 5 Frequency of Treatment Frequency Of Treatment Discharge Precautions Lumbar Precautions Log Roll,No Twisting,Limit Bending,Lifting Restriction of 10 lbs,Gait Belt above Incisional Area Recommendations To Nursing Amount of Assist Needed Standby Assistance Discharge Recommendations PT Discharge Recommendations Home with Assistance,Home Health Transportation Needs at Discharge Private Vehicle
--- NOTE | 2023-05-02 10:16 | OT.IP.TRT ---
Current Diagnoses Spondylolisthesis, lumbar region (04/30/23) Spinal stenosis, lumbar region with neurogenic claudication (04/30/23) Surgery Performed Operation Date: 04/30/23 13:45 Actual Procedures p L2-3 TLIF - Xiomy Duong MD Occupational Therapy Treatment Note M2 OT-IP Current Condition Start: 05/01/23 13:30 Freq: Status: Active Protocol: Document 05/01/23 11:00 [facility] (Rec: 05/01/23 13:57 [facility] [id number]) Occupational Therapy Current Condition Current Condition Evaluation Date 05/01/23 Treatment Diagnosis S/p L2-3 TLIF Diagnosis Onset Date 04/30/23 Post Operative Precautions Lumbar Precautions Log Roll,No Twisting,Limit Bending,Lifting Restriction of 10 lbs,Gait Belt above Incisional Area M3 OT- IP Subjective and Pain Start: 05/01/23 13:30 Freq: Status: Active Protocol: Document 05/02/23 10:17 [facility] (Rec: 05/02/23 10:25 [facility] [id number]) OT- Subjective Occupational Therapy Visit Type Type Treatment Note Visit Start Time 10:06 Visit Stop Time 10:16 Total Visit Minutes 10 Occupational Therapy Visit Comments Patient Comments Pt just getting dressed from showering. Patient/Caregiver Goals To go home. OT Pain Assessment Pain When Pain Assessed At Rest Pain Present Pain Present Denied Pain M4 OT- IP ADL's Start: 05/01/23 13:30 Freq: Status: Active Protocol: Document 05/02/23 10:17 [facility] (Rec: 05/02/23 10:25 [facility] [id number]) OT ADL-Dressing General Eval Upper Body Dressing Ability Independent Lower Body Dressing Ability Maximum Assistance Comments OT Dressing Comments Assist to get clothingn over her feet. Asist to get on slip on shoe at the heel. M5 OT- IP IADL's Start: 05/01/23 13:30 Freq: Status: Active Protocol: Document 05/01/23 11:00 [facility] (Rec: 05/01/23 13:57 [facility] [id number]) OT-Instrumental Activities of Daily Living Deficits IADL Deficits Identified Deficits Home Safety Awareness Awareness of Need for Assistance at Home Good Awareness Home Safety Comments pt has a supportive that will assist with pt needs . M6 OT- IP Functional Cognition Start: 05/01/23 13:30 Freq: Status: Active Protocol: Document 05/02/23 10:17 [facility] (Rec: 05/02/23 10:25 [facility] [id number]) Cognitive Factors Limiting Selfcare Function Cognitive Comments Cognitive Assessment Comments Pt still having trouble to incorporate no tweisting during ADl and mobility needs. Pt's able to remind her all the time and able to show good safety to be able to assist with all her needs. M7 OT- IP Mobility and Balance Start: 05/01/23 13:30 Freq: Status: Active Protocol: Document 05/02/23 10:17 [facility] (Rec: 05/02/23 10:25 [facility] [id number]) OT-Transfer Assessment Sit to and From Stand Sit to and from Stand Contact Guard Assistance Comments Mobility Comments Pt able to stand to FWW with CGA. It was determined best to take off the egg crate from her bed which measures 29 inches in height and without the egg gcrate 26 inches which will make it easier for the pt to get up and down form her bed at home. OT- Balance Assessment Sitting Balance and Reactions Static Sitting Balance Ability Good Dynamic Sitting Balance Ability Good Standing Balance and Reactions Static Standing Balance Ability Fair Comments Other Balance Tests/Deviations/Treatment Pt able to stand without the : FWW for clothing management but needing CGA for balance at times. Educated best to keep one hand on the FWW at all times or surfaces when standing for clothing needs at this time. M9 OT- IP Assessment and Plan Start: 05/01/23 13:30 Freq: Status: Active Protocol: Document 05/02/23 10:17 [facility] (Rec: 05/02/23 10:25 [facility] [id number]) OT Summary Assessment and Plan Potential Rehabilitation Potential Good Analytic Complexity at Evaluation Low Summary OT Impairments Pain,Strength,Balance, Functional Mobility,Grooming, Dressing,Toileting,Bathing, Toilet Transfers,Shower Transfers,Activity Tolerance Progress Towards Goals Progressing Toward Goals Assessment Summary Pt doing well but still forgetful of her back precautions. Pt may benefit from home health to continue to practice on working on her precautions during ADl and mobility needs. Pt's able to show good safety to be able to assist pt for all ADL and mobility needs. Pt to go home with 24/7 assist and home health. Goals Toileting Goal Independent Bathing Goal Standby Assistance Toilet Transfer Goal Independent Days to Meet Goals 7 Frequency of Treatment Frequency Of Treatment Once a Day Treatment Plan OT Treatment Plan ADL Training,Functional Mobility,Patient/Family Education,Discharge Planning Discharge Recommendations OT Discharge Recommendations Home with / Assist Available,Home Health Transportation Needs at Discharge Private Vehicle
--- NOTE | 2023-05-02 11:00 | CM.DPC ---
DCP Discharge home with HH Per Ortho PA, pt medically stable to d/c home today with HH. Per PT/OT, pt was able to participate and recommending safe d/c home with spouse and HH. SW met bedside with pt and spouse again and they confirm they are comfortable with d/c to home today and SW provided the HH Choice List and no HH preference. MIKE Mac made HH referral to [facility] based on Vendor Calendar and called and sent completed F2F and HH orders and d/c summary. Return call from [facility] stating they are 10 days out for RN and MIKE Mac called [facility] and made new referral. HUMBERTO provided HH brochure to spouse and pt and then AUTHORIZER took pt down to spouse POV. Plan: Patient to d/c home today via spouse POV and [facility] to follow for start on Fri05/05/23 after discharge. HERRERA Mendez
--- NOTE | 2023-05-02 12:23 | PC.NURSE ---
Pt is A&OX4, VSS, afebrile on RA. She is able to get up and sit in the chair for breakfast. She is able to ambulate with SBA using FWW to the bathroom and denies difficulty voiding. She is able to shower, and dressing changed to back. Jay Jay c/d/i . She reports pain is well controlled with scheduled tylenol, ibuprofen and prn oxycodone. She frequently needs reminding not to turn/twist upper body. OT at bedside reviewing with patient on getting dressed. She is cleared for discharge home with her this a.m. She verbalizes understanding of activity limitation, site care, s/sx of infection/complication as well as medications and follow up appointment. At approximately 11 a.m. she is escorted by w/ch by PSS DELIVERY PROFESSIONAL to private vehicle for discharge home with all of her belongings.
--- NOTE | 2023-05-02 13:00 | CM.DPNOTE ---
Spoke to Nghia at [facility] and they have accepted the patient for services, starting with RN services to begin on 05/06/23. Faxed all clinicals and received jess. Estefania Le CM [employer]cery Team Member.
== END 2023-05-02 10:52 | disposition home health service (06) | DRG 455 ==
PROVIDERS: Admitting Provider Orthopaedic Surgery Orthopaedic Surgery of the Spine; Referring Provider Orthopaedic Surgery Orthopaedic Surgery of the Spine; Visit Provider Orthopaedic Surgery Orthopaedic Surgery of the Spine
PROC: 0SG00AJ Fusion of Lumbar Vertebral Joint with Interbody Fusion Device, Posterior Approach, Anterior Column, Open Approach (ICD-10-PCS; principal; 2023-04-30 13:45)
DX: M43.16 Spondylolisthesis, lumbar region (principal); M48.061 Spinal stenosis, lumbar region without neurogenic claudication; M41.55 Other secondary scoliosis, thoracolumbar region; G89.18 Other acute postprocedural pain; E78.5 Hyperlipidemia, unspecified; Z20.822 Contact with and (suspected) exposure to COVID-19; Z87.891 Personal history of nicotine dependence
CPT/HCPCS: 72100; 76000; 97116; 97162; 97165; 97530; 97535; C9290; J0171; J0690; J1100; J1170; J2060; J2250; J2405; J2704; J3010; J3410